=== PATIENT | male | born 1945 | race Caucasian/White ===

== ENCOUNTER 2018-06-13 00:19 | Day surgery (SDC) | payer MEDICARE, OTHER ==
[~2018-06-13] VITALS: Ht 182.9 cm; Wt 75.7 kg
[~2018-06-13 00:19] MED LIST: ALB18R INH; ASCO-182 PO; ASPI81TA94 PO; BUDE90AE2 IH; CALC-521 PO; CHOL200025 PO; CYA1000 PO; DOCU-416 PO; FERR159T PO; FLAX100041 PO; FLUT16SP19 NS; GLUC-198 PO; GUAI600T57 PO; KETC15T TP; METF-421 PO; METR1KIT TP; MONT10TA PO; MULT1CAP59 PO; OMEG-23 PO; PRAS1TAB4 PO; PSYL3.4P2 PO; SIMV-54 PO; TACR100O5 TP; TAMS0.4C70 PO; TETR15DR9 OP; UBID1CAP94 PO; VALA500T63 PO
[2018-06-13 08:05] VITALS: BP 148/80
[2018-06-13] MEDS ORDERED: NORMOSOL R SOLN(*) 1000 ML BAG 1,000 ML IV PRN (09:05)
[2018-06-13] MEDS ORDERED: LIDOCAINE/SOD BICARB 8.4% SYR ID ONE (09:05)
[2018-06-13] MEDS ORDERED: LIDOCAINE MPF 1% 5 ML VIAL ONE (09:08)
[2018-06-13] MEDS ORDERED: PROPOFOL EMUL(*) 10MG/ML 20 ML 40 ML ONE (09:08)
[2018-06-13 09:57] VITALS: BP 96/57
[2018-06-13 10:12] VITALS: BP 95/57
[2018-06-13 10:32] VITALS: BP 115/63
[2018-06-13 10:34] VITALS: BP_SYST 111; BP_SYST 116; BP_DIAS 69; BP_DIAS 71
== END 2018-06-13 10:53 | disposition home or self-care (01) ==
LOC: OR 00:19
PROVIDERS: ATTEND Family Medicine
DX: Z12.11 Encounter for screening for malignant neoplasm of colon (principal); E11.9 Type 2 diabetes mellitus without complications
CPT/HCPCS: 00812; 36416; 82948; G0121; J2001; J2704

== ENCOUNTER → 2018-11-11 | Outpatient (CLI) | payer MEDICARE, OTHER ==
[~2018-11-11] MED LIST changes: -METF-421 PO; +METF-452 PO
== END ==
LOC: LAB 08:49
PROVIDERS: ATTEND Family Medicine
DX: I71.4 Abdominal aortic aneurysm, without rupture (principal)
CPT/HCPCS: 36415; 82565